=== PATIENT | male | born 1960 | race Caucasian/White ===

== ENCOUNTER 2022-01-14 13:15 | Inpatient (IN) | payer MEDICARE ==
[2022-01-15 15:47] VITALS: BMI 23.7
[2022-01-19] MEDS ORDERED: Lidocaine 1% MPF 2 ML VIAL ONE (09:09)
[2022-01-19] MEDS ORDERED: CEFAZOLIN 2 GM VIAL ONE ×2 (09:10→11:29)
[2022-01-19] MEDS ORDERED: Sodium Chloride 0.9% 0 ML ONE (09:10)
[2022-01-19] MEDS ORDERED: Fentanyl 100 MCG/2 ML VIAL ONE ×4 (11:12→15:37)
[2022-01-19] MEDS ORDERED: fentaNYL Citrate/PF 100 MCG/2 ML SYRINGE ONE (11:25)
[2022-01-19] MEDS ORDERED: Sodium Chloride 0.9% 100 ML ONE (11:29)
[2022-01-19] MEDS ORDERED: PHENYLEPHRINE-NS 100 MCG/ML 10 ML SYRINGE ONE ×2 (12:32→13:12)
[2022-01-19] MEDS ORDERED: PROPOFOL 200 MG/20 ML VIAL ONE (12:32)
[2022-01-19] MEDS ORDERED: ePHEDrine 50 MG/ML VIAL ONE (12:32)
[2022-01-19] MEDS ORDERED: Dexamethasone 20 MG/5 ML VIAL ONE (12:32)
[2022-01-19] MEDS ORDERED: Ondansetron PF 4 MG/2 ML Vial ONE (12:32)
[2022-01-19] MEDS ORDERED: Lidocaine 1% PF 5 ML VIAL ONE (12:32)
[2022-01-19] MEDS ORDERED: Rocuronium Bromide 10 MG/ML (10ML VIAL) ONE (12:32)
[2022-01-19] MEDS ORDERED: SUGAMMADEX SODIUM 200 MG/2 ML VIAL ONE (13:43)
[2022-01-19] MEDS ORDERED: Promethazine HCl 25 MG/ML VIAL IM/IV PRN (14:05)
[2022-01-19] MEDS ORDERED: Ondansetron HCl/PF 4 MG/2 ML Vial IVP PRN (14:05)
[2022-01-19] MEDS ORDERED: HYDROmorphone 0.5 MG/0.5 ML SYRINGE ONE ×4 (14:21→15:16)
[2022-01-19] MEDS ORDERED: HYDROmorphone 2 MG/ML VIAL SLOW IVP PRN (14:22)
[2022-01-19] MEDS ORDERED: Meperidine HCl/PF 25 MG/ML VIAL ONE (14:40)
[2022-01-19] MEDS ORDERED: Meperidine HCl/PF 25 MG/ML VIAL IV SCH (14:42)
[2022-01-19] MEDS ORDERED: Tamsulosin HCl 0.4 MG CAP ONE (15:03)
[2022-01-19] MEDS ORDERED: Non-Formulary Medication 1 EACH PO PRN (16:18)
[2022-01-19] MEDS ORDERED: Cyclobenzaprine 10 MG TAB ONE (16:24)
[2022-01-19] MEDS ORDERED: traMADol HCl 50 MG TAB PO PRN (16:25)
[2022-01-19] MEDS ORDERED: Acetaminophen 325 MG TAB PO PRN (20:27)
[2022-01-19] MEDS ORDERED: Morphine 2 MG/ML VIAL SLOW IVP PRN (20:27)
[2022-01-19] MEDS ORDERED: diphenhydrAMINE 50 MG/ML VIAL IVP PRN (20:27)
[2022-01-19] MEDS ORDERED: Mag-Al 1200 mg/1200 mg/30 ML UDCUP PO PRN (20:27)
[2022-01-19] MEDS ORDERED: Promethazine 25 MG TAB PO PRN (20:27)
[2022-01-19] MEDS ORDERED: Milk Of Magnesia 30 ML UDCUP PO PRN (20:27)
[2022-01-19] MEDS: Gabapentin 300 MG CAP PO SCH (20:50)
[2022-01-19] MEDS: CEFAZOLIN 2 GM in Sodium Chloride 0.9% 100 ML IVPB SCH (21:03)
[2022-01-19] MEDS: Sodium Chloride 0.9% 1,000 ML IV SCH (21:07)
[2022-01-20] MEDS: CEFAZOLIN 2 GM in Sodium Chloride 0.9% 100 ML IVPB SCH ×3 (04:34→20:02)
[2022-01-20] MEDS: Cyclobenzaprine 10 MG TAB PO PRN ×2 (04:35→23:35)
[2022-01-20] MEDS: Acetaminophen/Codeine 30-300mg Tablet PO PRN ×4 (04:35→21:40)
[2022-01-20] MEDS: Sodium Chloride 0.9% 1,000 ML IV SCH (04:36)
[2022-01-20] MEDS: Dexamethasone 4 mg/ml Vial SLOW IVP SCH ×4 (06:41→23:31)
[2022-01-20] MEDS: Gabapentin 300 MG CAP PO SCH ×3 (08:40→20:02)
[2022-01-21] MEDS: Sodium Chloride 0.9% 1,000 ML IV SCH ×2 (00:31→12:49)
[2022-01-21] MEDS: Dexamethasone 4 mg/ml Vial SLOW IVP SCH ×3 (05:17→17:57)
[2022-01-21] MEDS: CEFAZOLIN 2 GM in Sodium Chloride 0.9% 100 ML IVPB SCH ×3 (05:17→21:45)
[2022-01-21] MEDS: Acetaminophen/Codeine 30-300mg Tablet PO PRN ×3 (05:18→21:44)
[2022-01-21] MEDS: Gabapentin 300 MG CAP PO SCH ×3 (08:46→21:44)
[2022-01-22] MEDS: Dexamethasone 4 mg/ml Vial SLOW IVP SCH ×2 (00:11→06:59)
[2022-01-22] MEDS: Sodium Chloride 0.9% 1,000 ML IV SCH (03:10)
[2022-01-22] MEDS: Gabapentin 300 MG CAP PO SCH (09:35)
[2022-01-22 11:19] VITALS: BP 142/95; TEMP 98.3
== END 2022-01-22 12:01 | disposition home or self-care (01) | DRG 472 ==
LOC: SURG A 01-19 08:20 → SURG B 01-19 16:46
PROVIDERS: ADMIT Neurological Surgery; ATTEND Neurological Surgery
PROC: 0RG20A0 Fusion of 2 or more Cervical Vertebral Joints with Interbody Fusion Device, Anterior Approach, Anterior Column, Open Approach (ICD-10-PCS; principal; 2022-01-19)
PROC: 0RT30ZZ Resection of Cervical Vertebral Disc, Open Approach (ICD-10-PCS; 2022-01-19)
DX: M48.02 Spinal stenosis, cervical region (principal); M47.12 Other spondylosis with myelopathy, cervical region; R13.10 Dysphagia, unspecified; R20.8 Other disturbances of skin sensation
CPT/HCPCS: 76000; C1713; C1768; J0690; J1100; J1170; J2175; J2405; J2704; J3010; J3490; J7050

== ENCOUNTER 2022-01-14 13:52 | Outpatient (CLI) | payer MEDICARE ==
[2022-01-14 16:08] LABS: Hemoglobin 14.6 g/dL (13.5-17.5); Mean Corpuscular HGB CONC 34.7 g/dL (32.0-36.0); Mean Corpuscular Hemoglobin 30.7 pg (27.0-33.0); Mean Corpuscular Volume 88.4 fl (81.2-95.1); Mean Platelet Volume 11.1 fl (7.4-10.4); Platelet Count 286 10x3/uL (150-450); RBC Distribution Width 11.8 % (11.5-14.5); Red Blood Cell (RBC) Count 4.76 10x6/uL (4.32-5.72); White Blood Cell (WBC) Count 7.4 10x3/uL (3.5-10.5)
[2022-01-14 16:26] LABS: Anion Gap 18 mmol/L (10-20); BUN (Urea Nitrogen) 10 mg/dL (8.4-25.7); Calc. Creatinine Clearance 0 mL/min (70-130); Calcium 9.7 mg/dL (7.8-10.44); Carbon Dioxide 25 mmol/L (22-29); Chloride 98 mmol/L (98-107); Glucose 84 mg/dL (70-105); Potassium 4.7 mmol/L (3.5-5.1); Sodium 136 mmol/L (136-145)
== END 2022-01-14 13:53 | disposition home or self-care (01) ==
LOC: LABBT 13:52
PROVIDERS: ATTEND Neurological Surgery
DX: Z01.818 Encounter for other preprocedural examination (principal); M47.12 Other spondylosis with myelopathy, cervical region; Z20.822 Contact with and (suspected) exposure to COVID-19
CPT/HCPCS: 80048; 85027; 93005; U0003; U0005; 93010